=== PATIENT | female | born 2000 | race Hispanic/Latino ===

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

== ENCOUNTER 2023-04-15 04:17 | Emergency (ER) | payer MEDICAID ==
[~2023-04-15] VITALS: Ht 165.1 cm; Wt 79.4 kg
[2023-04-15 04:43] LABS: RAPID GROUP A STREP negative (NEGATIVE)
[2023-04-15 04:48] LABS: SARS-CoV-2, RNA, NAAT NEGATIVE SARS CoV-2 (NEGATIVE)
[2023-04-15 04:53] LABS: INFLUENZA TYPE A Negative For Type A (NEGATIVE); INFLUENZA TYPE B Negative For Type B (NEGATIVE)
[2023-04-15] MEDS ORDERED: IBUP-1493 PO (04:57)
[2023-04-15] MEDS ORDERED: PRED20TA3 PO (04:57)
[2023-04-15] MEDS ORDERED: ALBU90AE2 IH (04:58)
[2023-04-15] MEDS ORDERED: AMOX1TAB16 PO (05:00)
[2023-04-15] MEDS ORDERED: IBUPROFEN 800 MG TAB PO ONE (05:00)
[2023-04-15] MEDS ORDERED: PREDNISONE 20 MG TABLET PO ONE (05:00)
[2023-04-15 05:07] VITALS: BP 114/52; PULSE 80; RESP 14; O2SAT 98
== END 2023-04-15 05:19 | disposition home or self-care (01) ==
LOC: EDH 04:17
DX: B34.9 Viral infection, unspecified (principal); Z20.822 Contact with and (suspected) exposure to COVID-19
CPT/HCPCS: 99283; 87635; 87880; 87804 ×2; C9803

== ENCOUNTER 2023-06-20 20:33 | Emergency (ER) | payer MEDICAID, OTHER ==
[~2023-06-20] VITALS: Ht 165.1 cm; Wt 79.4 kg
[~2023-06-20 20:33] MED LIST: ALBU90AE2 IH; AMOX1TAB16 PO; IBUP-1493 PO; PRED20TA3 PO
[2023-06-20 21:49] LABS: BASOPHILS # (AUTO) 0.05 K/uL (0.00-0.20); BASOPHILS % (AUTO) 0.6 % (0.0-5.0); EOSINOPHILS % (AUTO) 1.1 % (0.0-8.0); HEMATOCRIT 41.1 % (36-48); IMMATURE GRANULOCYTE ABSOLUTE 0.03 K/uL (0-1); LYMPHOCYTES # (AUTO) 3.1 K/uL (1.0-4.8); LYMPHOCYTES % (AUTO) 35.9 % (21.0-51.0); MEAN CORPUSCULAR HEMOGLOBIN 30.7 pg (27.0-33.0); MEAN CORPUSCULAR HGB CONC 35.8 g/dL (32.0-36.0); MEAN CORPUSCULAR VOLUME 85.8 fL (80-100); MONOCYTES # (AUTO) 0.7 K/uL (0.1-1.0); MONOCYTES % (AUTO) 7.4 % (3.0-13.0); NEUTROPHILS # (AUTO) 4.8 K/uL (1.8-7.7); NEUTROPHILS % (AUTO) 54.7 % (40.0-77.0); PLATELET COUNT (AUTO) 309 K/uL (130-400); RED BLOOD CELL COUNT(AUTO) 4.79 MIL/uL (4.00-5.50); WHITE BLOOD COUNT (AUTO) 8.8 K/uL (4.8-10.8)
[2023-06-20 21:54] LABS: CREATININE 0.6 mg/dL (0.5-1.5)
[2023-06-20 21:59] LABS: ALBUMIN 3.7 g/dL (3.5-5.0); BILIRUBIN,TOTAL 0.4 mg/dL (0.2-1.0); TOTAL PROTEIN, SERUM 7.5 g/dL (6.0-8.3)
[2023-06-20 22:33] LABS: APPEARANCE,URINE TURBID (CLEAR); BILIRUBIN,URINE NEGATIVE (NEGATIVE); COLOR,URINE LIGHT-ORANGE (YELLOW); GLUCOSE, URINE (UA) NEGATIVE (NEGATIVE); KETONES,URINE NEGATIVE (NEGATIVE); LEUKOCYTE ESTERASE ,URINE NEGATIVE Leu/uL (NEGATIVE); NITRATE,URINE NEGATIVE (NEGATIVE); OCCULT BLOOD,URINE LARGE (NEGATIVE); PROTEIN,URINE 20 mg/dL (NEGATIVE); UROBILINOGEN,URINE 0.2 mg/dL (0.2-1.0)
[2023-06-20 22:34] LABS: ADD UA MICROSCOPIC YES
[2023-06-20 22:35] LABS: HCG,QUALITATIVE URINE NEGATIVE (NEGATIVE)
[2023-06-20 22:46] LABS: MUCUS,URINE RARE LPF (None Seen); RBC,URINE 51-100 /HPF (0-1); SQUAMOUS EPITHELIAL CELL,UR FEW /HPF (0-2)
[2023-06-20 22:52] VITALS: BP 129/87; PULSE 87; RESP 17; O2SAT 96
== END 2023-06-20 22:53 | disposition home or self-care (01) ==
LOC: EDH 20:33
DX: O20.0 Threatened abortion (principal); Z3A.01 Less than 8 weeks gestation of pregnancy; Z79.899 Other long term (current) drug therapy; Z98.890 Other specified postprocedural states
CPT/HCPCS: 36415; 80053; 81001; 81025; 83690; 84702; 85025